=== PATIENT | female | born 1985 | race Caucasian/White ===

== ENCOUNTER 2017-09-01 06:39 | Day surgery (SDC) | payer OTHER ==
[~2017-09-01] VITALS: Ht 165.1 cm; Wt 53.2 kg
[~2017-09-01 06:39] MED LIST: CeFAZolin 1 GM/DEXTROSE 50 ML IV ONE; LORazepam 2 MG/ML VIAL IVP PRN; SODIUM CHLORIDE 0.9% 1,000 ML IV ONE; VALA500T38 PO
[2017-09-01 07:03] LABS: BASOPHILS % (AUTO) 0.5 % (0.0-2.0); EOSINOPHILS % (AUTO) 2.1 % (1.0-6.0); HEMATOCRIT 40.3 % (36-46); HEMOGLOBIN 13.5 g/dL (12.0-16.0); LYMPHOCYTES # (AUTO) 1.9 K/uL (1.0-4.8); LYMPHOCYTES % (AUTO) 28.9 % (22.0-44.0); MEAN CORPUSCULAR HEMOGLOBIN 31.2 pg (26.0-34.0); MEAN CORPUSCULAR HGB CONC 33.5 G/dL (31.0-37.0); MEAN CORPUSCULAR VOLUME 93 fL (80-100); MONOCYTES # (AUTO) 0.6 K/uL (0.1-1.0); MONOCYTES % (AUTO) 9.5 % (2.0-9.0); NEUTROPHILS # (AUTO) 3.8 K/uL (1.8-7.7); PLATELET COUNT (AUTO) 261 K/uL (150-450); RED BLOOD CELL COUNT(AUTO) 4.33 MIL/uL (4.00-5.20); RED CELL DISTRIBUTION WIDTH 12.9 % (11.5-14.5); WHITE BLOOD COUNT (AUTO) 6.5 K/uL (4.5-11.0)
[2017-09-01] MEDS ORDERED: LORazepam 2 MG/ML VIAL ONE (07:45)
[2017-09-01] MEDS ORDERED: FentaNYL CITRATE-PF 100 MCG/2 ML VIAL ONE (07:52)
[2017-09-01] MEDS ORDERED: MIDAZOLAM HCL 2 MG/2 ML VIAL ONE (07:52)
[2017-09-01] MEDS ORDERED: FentaNYL CITRATE-PF 100 MCG/2 ML VIAL IVP ONE (08:24)
[2017-09-01] MEDS ORDERED: MIDAZOLAM HCL 2 MG/2 ML VIAL IVP ONE (08:55)
[2017-09-01] MEDS ORDERED: SODIUM CHLORIDE 0.9% 1,000 ML IV SCH (09:29)
[2017-09-01] MEDS ORDERED: OxyCODONE HCL/ACETAMINOPHEN 5-325 MG TABLET PO PRN ×2 (09:30)
[2017-09-01] MEDS ORDERED: HYDROmorphone HCL 2 MG TABLET PO ONE (09:30)
[2017-09-01] MEDS ORDERED: HYDROmorphone 2 MG/ML SYRINGE ONE ×2 (09:57→11:49)
[2017-09-01] MEDS: HYDROmorphone 2 MG/ML SYRINGE IVP PRN ×2 (09:59→11:38)
[2017-09-01] MEDS ORDERED: SODIUM CHLORIDE 0.9% 500 ML IV ONE (10:33)
== END 2017-09-01 14:20 | disposition home or self-care (01) ==
LOC: SURGERY 06:39 → EDSTATUS 08:00 → SURGERY 14:20
PROVIDERS: ATTEND Radiology Diagnostic Radiology
DX: C50.012 Malignant neoplasm of nipple and areola, left female breast (principal); S21.002A Unspecified open wound of left breast, initial encounter; E11.9 Type 2 diabetes mellitus without complications; I10 Essential (primary) hypertension; Z88.6 Allergy status to analgesic agent; Z79.84 Long term (current) use of oral hypoglycemic drugs; Z83.3 Family history of diabetes mellitus; Z82.49 Family history of ischemic heart disease and other diseases of the circulatory system; X58.XXXA Exposure to other specified factors, initial encounter; Y93.89 Activity, other specified
CPT/HCPCS: 19105; 36415; 84703; 85025; 99152; 99153; C2618; J0690; J1170; J2060; J2250; J3010; J7030; J7040